=== PATIENT | female | born 1965 | race Caucasian/White ===

== ENCOUNTER 2024-10-17 08:01 | Outpatient (AMB) | payer MEDICAID, SELFPAY ==
[2024-10-17 08:15] VITALS: BP 158/84; PULSE 77; RESP 18; TEMP 36.6; O2SAT 97; BMI 42.5
--- NOTE | 2024-10-17 08:15 | ORTHONT_ITS ---
Vital signs 10/17/24 08:15 Height 1.65 m Height Method Stated Weight 115.921 kg Weight Measurement Method Standing Scale BMI 42.5 BP 158/84 H Blood Pressure Source Automatic Cuff Blood Pressure Location Left Upper Arm Position Sitting Respiration 18 Pulse 77 Pulse Source Monitor Temp 97.8 F Temp Source Oral Pulse Oximetry (%) 97 Oxygen Delivery Method Room Air Med/Allergies Allergies & Medications Allergies No Known Allergies Allergy (Verified 07/18/24 10:47) Subjective Visit Visit for: follow up visit, knee and injections Immunization / Flu Flu Vaccine in the Last 12 Months: Yes Date of most recent flu vaccination: 04/07/24 Flu Vaccine Exclusion Criteria: Already Received History of Present Illness Chief complaint: 3 MONTH FOLLOW UP/KNEE INJECTION Arelis is a pleasant 58-year-old female with bilateral knee pain and osteoarthritis. We previously gave her an injection of the left knee in the last 3 months. She has tried anti-inflammatories as well. The inections have worked quite well and are still working. Personal History Red flag PMH: smoker (NON SMOKER ) Pain Pain level (0-10): 4 Pain duration: ON AND OFF Pain location: inside (medial), outside (lateral), anterior and posterior Pain quality: aching Pain timing: night and increases with activity Associated signs & symptoms: stiffness and none Ambulatory data Ambulatory device: none Treatments Number of previous injections: 1 Improvement with previous injections: Yes Improvement with PT: No Improvement with NSAIDS: no Review of Systems Review of Systems: All systems negative unless otherwise noted in HPI. Exam Exam Patient is in no acute distress and is cooperative with the examination today. Breathing is nonlabored. In no respiratory distress. Bilateral extremities were evaluated and demonstrates sensation intact to light touch. Palpable pedal pulses are present. No significant edema is present. Bilateral hips were examined. The patient has no pain with log roll of the hips. Internal rotation to 30 degrees and external rotation to 30 degrees is painless. Negative FADIR. The left knee was examined. The left knee is in [varus] alignment. Range of motion from [0-115] degrees. Knee is stable to varus and valgus as well as AP translation with <5mm. Patient has a [negative] McMurrays. There is [no] pain with patellofemoral compression and [no] crepitus noted. The knee is [tender] to palpation [medially]. The right knee was also examined. The right knee is in [varus] alignment. Range of motion from [0-120] degrees. Knee is stable to varus and valgus as well as AP translation with <5mm. Patient has a [negative] McMurrays. There is [no] pain with patellofemoral compression and [no] crepitus noted. The knee is [tender] to palpation [medially]. X-rays of her bilateral knees demonstrate moderate to severe joint space narrow ing bilaterally with complete obliteration of the joint space Assessment and Plan Problem List (1) Bilateral primary osteoarthritis of knee: Status: Acute Plan: 58-year-old female with bilateral knee pain and osteoarthritis. She is morbidly obese. She would like bilateral knee cortisone injections today She will call us when she needs another injection. She is doing quite well right now. (2) Bilateral knee pain: Status: Acute Office Procedures GNS Level of Care Nursing/Assessment Patient Status: Established Patient Nursing Assessment/Reassesment: BP Monitoring, Medication Reconciliation, Update PMH in EMR and Vital Signs Coordination of Care: Complex Care and Chronic Disease 1-5, Consent,records obtained, informed consent, Lab and Imaging orders and Results/Orders obtained Established Patient Charge Established Patient Point Assignment: 95 Established Patient Point Charge: EP Level 3 (80-115) Past Medical History Past Medical History Have you ever been diagnosed with any of the following: Respiratory Problems Smoking: No Smoking Exposure: No
== END 2024-10-17 08:30 | disposition home or self-care (01) ==
LOC: HODSRG 08:01
PROVIDERS: PCP Physician Assistant; Referring Provider Physician Assistant; Supervising Provider Orthopaedic Surgery Adult Reconstructive Orthopaedic Surgery; Visit Provider Orthopaedic Surgery Adult Reconstructive Orthopaedic Surgery
DX: M17.0 Bilateral primary osteoarthritis of knee (principal); M25.562 Pain in left knee; M25.561 Pain in right knee; E66.01 Morbid (severe) obesity due to excess calories; Z68.41 Body mass index [BMI] 40.0-44.9, adult
CPT/HCPCS: 99213; G0463

== ENCOUNTER 2025-01-15 13:08 | Outpatient (AMB) | payer MEDICAID, SELFPAY ==
--- NOTE | 2025-01-15 13:25 | PD.ORTHCLVIS ---
Med/Allergies Allergies & Medications Allergies No Known Allergies Allergy (Verified 07/18/24 10:47) Exam Exam Patient is in no acute distress and is cooperative with the examination today. Breathing is nonlabored. In no respiratory distress. Bilateral extremities were evaluated and demonstrates sensation intact to light touch. Palpable pedal pulses are present. No significant edema is present. Bilateral hips were examined. The patient has no pain with log roll of the hips. Internal rotation to 30 degrees and external rotation to 30 degrees is painless. Negative FADIR. The left knee was examined. The left knee is in [varus] alignment. Range of motion from [0-115] degrees. Knee is stable to varus and valgus as well as AP translation with <5mm. Patient has a [negative] McMurrays. There is [no] pain with patellofemoral compression and [no] crepitus noted. The knee is [tender] to palpation [medially]. The right knee was also examined. The right knee is in [varus] alignment. Range of motion from [0-120] degrees. Knee is stable to varus and valgus as well as AP translation with <5mm. Patient has a [negative] McMurrays. There is [no] pain with patellofemoral compression and [no] crepitus noted. The knee is [tender] to palpation [medially]. X-rays of her bilateral knees demonstrate moderate to severe joint space narrowing bilaterally with complete obliteration of the joint space Assessment and Plan Problem List (1) Bilateral primary osteoarthritis of knee: Status: Acute Plan: 58-year-old female with bilateral knee pain and osteoarthritis. She is morbidly obese. She would like bilateral knee cortisone injections today Recommend knee cortisone injections as patient would like to proceed with conservative treatment at this time. The risks and benefits of the procedure were reviewed with the patient and patient gave verbal consent to continue with the procedure. Procedure: performed by Dr. Hunt Using sterile technique the Bilateral knees were thoroughly prepped with alcohol, and approximately 1 cc of Kenalog 40 mg/mL and 4 cc of 1% lidocaine was injected into each knee without resistance into the medial tibial femoral joint space. The patient tolerated the procedure. (2) Bilateral knee pain: Status: Acute Questionairres Past Medical History Past Medical History Have you ever been diagnosed with any of the following: Respiratory Problems Smoking: No Smoking Exposure: No Subjective Immunization / Flu Flu Vaccine in the Last 12 Months: Yes Flu Vaccine Exclusion Criteria: Already Received History of Present Illness Chief complaint: Bilateral knee pain Patient is a pleasant 52 severe female with bilateral knee pain. She is done well with the last cortisone injections. She would like any cortisone injection around today. She is received approximately 3 months of relief Review of Systems Review of Systems: All systems negative unless otherwise noted in HPI.
[2025-01-15 13:27] VITALS: BP 126/76; PULSE 80; RESP 18; TEMP 36.3; O2SAT 97; BMI 40.3
--- NOTE | 2025-01-15 14:30 | ORTHONT_ITS ---
Vital signs 01/15/25 13:27 01/15/25 14:31 Height 1.65 m Height Method Stated Weight 109.854 kg Weight Measurement Method Standing Scale BMI 40.3 BP 126/76 126/76 Blood Pressure Source Automatic Cuff Blood Pressure Location Right Upper Arm Position Sitting Respiration 18 18 Pulse 80 80 Pulse Source Monitor Temp 97.3 F 97.3 F Temp Source Temporal Artery Scan Pulse Oximetry (%) 97 97 Oxygen Delivery Method Room Air Med/Allergies Allergies & Medications Allergies No Known Allergies Allergy (Verified 07/18/24 10:47) Assessment and Plan Problem List (1) Bilateral primary osteoarthritis of knee: Status: Acute (2) Bilateral knee pain: Status: Acute Office Procedures GNS Level of Care Nursing/Assessment Patient Status: Established Patient Nursing Assessment/Reassesment: Medication Reconciliation, Update PMH in EMR and Vital Signs Coordination of Care: Complex Care and Chronic Disease 1-5, Education Complex Pt/Fam, Consent,records obtained, informed consent, Results/Orders obtained and Staff clarify orders Established Patient Charge Established Patient Point Assignment: 95 Established Patient Point Charge: EP Level 3 (80-115) Surgical Proc/IM SQ injection Major Surgical Procedure: Yes Medication Given Medication Given Medication Given: Yes Documented Dose Given: 8 Route: Infiitration Medication Given Medication Given Medication Given: Yes Documented Dose Given: 2 Route: Infiitration Office Meds Xylocaine 10 mg/mL (1 %) injection solution Performing Provider: James Hnut MD Performing Location: [facility] Administered by: James Hunt MD on 01/15/25 16:09 Dose Route Admin Location Dispensed Lot Number Expiration Date [facility] Principal [employer] 40 mL Infiltration 40 mL [id number] [facility] KA triamcinolone acetonide 40 mg/mL suspension for injection Performing Provider: James Hunt MD Performing Location: [facility] Administered by: James Hunt MD on 01/15/25 16:09 Dose Route Admin Location Dispensed Lot Number Expiration Date [facility] Principal [employer] 80 mg intra-articular 2 mL [id number] [employer] Questionairres Past Medical History Past Medical History Have you ever been diagnosed with any of the following: Respiratory Problems Smoking: No Smoking Exposure: No Subjective Immunization / Flu Flu Vaccine in the Last 12 Months: Yes Flu Vaccine Exclusion Criteria: Already Received Review of Systems Review of Systems: All systems negative unless otherwise noted in HPI.
[2025-01-15 14:31] VITALS: BP 126/76; PULSE 80; RESP 18; TEMP 36.3; O2SAT 97
== END 2025-01-15 13:37 | disposition home or self-care (01) ==
LOC: HODSRG 13:08
PROVIDERS: PCP Physician Assistant; Referring Provider Physician Assistant; Supervising Provider Orthopaedic Surgery Adult Reconstructive Orthopaedic Surgery; Visit Provider Orthopaedic Surgery Adult Reconstructive Orthopaedic Surgery
DX: M17.0 Bilateral primary osteoarthritis of knee (principal); E66.01 Morbid (severe) obesity due to excess calories; Z68.41 Body mass index [BMI] 40.0-44.9, adult
CPT/HCPCS: 20610; 99213; J3301; J3490; G0463

== ENCOUNTER 2025-04-16 13:22 | Outpatient (AMB) | payer MEDICAID, SELFPAY ==
--- NOTE | 2025-04-16 13:29 | ORTHONT_ITS ---
Vital signs 04/16/25 13:32 Height 1.65 m Height Method Stated Weight 105.715 kg Weight Measurement Method Standing Scale BMI 38.8 BP 125/81 Blood Pressure Source Automatic Cuff Blood Pressure Location Right Upper Arm Position Sitting Respiration 18 Pulse 74 Pulse Source Monitor Temp 97.8 F Temp Source Temporal Artery Scan Pulse Oximetry (%) 95 Oxygen Delivery Method Room Air Med/Allergies Allergies & Medications Allergies No Known Allergies Allergy (Verified 04/16/25 13:32) Medication Reconciliation ibuprofen 600 mg tablet 600 mg PO Q6H #30 tabs 11/01/19 [Rx Confirmed 04/16/25] cyclobenzaprine 10 mg tablet 10 mg PO TID PRN muscle spasm #30 tabs 05/09/21 [Rx Confirmed 04/16/25] hydrocodone 5 mg-acetaminophen 325 mg tablet 1 tab PO BID PRN pain #6 tabs 05/09/21 [Rx Confirmed 04/16/25] ibuprofen 800 mg tablet 800 mg PO TID PRN pain #30 tabs 05/09/21 [Rx Confirmed 04/16/25] Exam Exam Patient is in no acute distress and is cooperative with the examination today. Breathing is nonlabored. In no respiratory distress. Bilateral extremities were evaluated and demonstrates sensation intact to light touch. Palpable pedal pulses are present. No significant edema is present. Bilateral hips were examined. The patient has no pain with log roll of the hips. Internal rotation to 30 degrees and external rotation to 30 degrees is painless. Negative FADIR. The left knee was examined. The left knee is in [varus] alignment. Range of motion from [0-115] degrees. Knee is stable to varus and valgus as well as AP translation with <5mm. Patient has a [negative] McMurrays. There is [no] pain with patellofemoral compression and [no] crepitus noted. The knee is [tender] to palpation [medially]. The right knee was also examined. The right knee is in [varus] alignment. Range of motion from [0-120] degrees. Knee is stable to varus and valgus as well as AP translation with <5mm. Patient has a [negative] McMurrays. There is [no] pain with patellofemoral compression and [no] crepitus noted. The knee is [tender] to palpation [medially]. X-rays of her bilateral knees demonstrate moderate to severe joint space narrowing bilaterally with complete obliteration of the joint space Assessment and Plan Problem List (1) Bilateral primary osteoarthritis of knee: Status: Acute Plan: 58-year-old female with bilateral knee pain and osteoarthritis. She is morbidly obese. She would like bilateral knee cortisone injections today Recommend knee cortisone injections as patient would like to proceed with conservative treatment at this time. The risks and benefits of the procedure were reviewed with the patient and patient gave verbal consent to continue with the procedure. Procedure: performed by Dr. Hunt Using sterile technique the Bilateral knees were thoroughly prepped with alcohol, and approximately 1 cc of Kenalog 40 mg/mL and 4 cc of 1% lidocaine was injected into each knee without resistance into the medial tibial femoral joint space. The patient tolerated the procedure. (2) Bilateral knee pain: Status: Acute Office Procedures GNS Level of Care Nursing/Assessment Patient Status: Established Patient Nursing Assessment/Reassesment: Medication Reconciliation, Update PMH in EMR and Vital Signs Coordination of Care: Complex Care and Chronic Disease 1-5, Education Complex Pt/Fam, Consent,records obtained, informed consent, Results/Orders obtained and Staff clarify orders Established Patient Charge Established Patient Point Assignment: 95 Established Patient Point Charge: EP Level 3 (80-115) Surgical Proc/IM SQ injection Major Surgical Procedure: Yes (KNEE INJECTION ) Medication Given Medication Given Medication Given: Yes Documented Dose Given: 8 Route: Infiitration Medication Given Medication Given Medication Given: Yes Documented Dose Given: 2 Route: Infiitration Office Meds Xylocaine 10 mg/mL (1 %) injection solution Performing Provider: James Hunt MD Performing Location: [facility] Administered by: James Hunt MD on 04/16/25 13:39 Dose Route Admin Location Dispensed Lot Number Expiration Date [facility] [employer] Supervisor 40 mL Infiltration 40 mL [id number] 03/04/28 66356-368-[address] [facility] triamcinolone acetonide 40 mg/mL suspension for injection Performing Provider: James Hunt MD Performing Location: [facility] Administered by: James Hunt MD on 04/16/25 13:39 Dose Route Admin Location Dispensed Lot Number Expiration Date [facility] [employer] Supervisor 80 mg intra-articular 2 mL [id number] 06/03/26 13460-927-88 DANN LIRA MA Intake Visit Data Collection New Patient or Established: Established Patient (seen at [facility] within 3 years) Reason for Visit:: F/U 3 MONTHS KNEE INJECTIONS Seen by Clinical Staff ONLY (RN/MIKKI): No Verbal consent obtained for Telemed visit?: No Tension Worker Required: No PCP or OBGYN visit in last 3 months: Yes Hx Now: No Do You Feel Safe at Home: Yes Authorities Contacted: N/A Questionairres Past Medical History Past Medical History Have you ever been diagnosed with any of the following: Respiratory Problems Smoking: No Smoking Exposure: No Subjective Visit Visit for: follow up visit, knee and injections Immunization / Flu Flu Vaccine in the Last 12 Months: Yes Flu Vaccine Exclusion Criteria: Already Received History of Present Illness Chief complaint: Bilateral knee pain Patient is a pleasant female with bilateral knee pain. She has done well with the last cortisone injections. She would like any cortisone injection around today. She has received approximately 3 months of relief Personal History Red flag PMH: BMI BMI Counceling provided: Yes Pain Pain level (0-10): 6 Pain duration: ALL DAY Pain location: anterior and posterior Pain quality: sharp, dull and aching Associated signs & symptoms: none Ambulatory data Ambulatory device: none Treatments Improvement with previous injections: No Improvement with PT: No Improvement with NSAIDS: no Review of Systems Review of Systems: All systems negative unless otherwise noted in HPI.
[2025-04-16 13:32] VITALS: BP 125/81; PULSE 74; RESP 18; TEMP 36.6; O2SAT 95; BMI 38.8
== END 2025-04-16 13:41 | disposition home or self-care (01) ==
LOC: HODSRG 13:22
PROVIDERS: PCP Physician Assistant; Referring Provider Physician Assistant; Supervising Provider Orthopaedic Surgery Adult Reconstructive Orthopaedic Surgery; Visit Provider Orthopaedic Surgery Adult Reconstructive Orthopaedic Surgery
DX: M17.0 Bilateral primary osteoarthritis of knee (principal); M25.561 Pain in right knee; M25.562 Pain in left knee; E66.01 Morbid (severe) obesity due to excess calories; Z68.38 Body mass index [BMI] 38.0-38.9, adult
CPT/HCPCS: 20610; 99213; J3301; J3490; G0463

== ENCOUNTER 2025-10-20 09:32 | Outpatient (AMB) | payer MEDICAID, SELFPAY ==
--- NOTE | 2025-10-20 09:38 | ORTHONT_ITS ---
Vital signs 10/20/25 09:40 Height 1.65 m Height Method Stated Weight 106.396 kg Weight Measurement Method Standing Scale BMI 39.0 BP 137/84 H Blood Pressure Source Automatic Cuff Blood Pressure Location Left Upper Arm Position Sitting Respiration 19 Pulse 73 Pulse Source Monitor Temp 96.9 F Temp Source Temporal Artery Scan Pulse Oximetry (%) 97 Oxygen Delivery Method Room Air Med/Allergies Allergies & Medications Allergies No Known Allergies Allergy (Verified 10/20/25 09:43) Medication Reconciliation ibuprofen 600 mg tablet 600 mg PO Q6H #30 tabs 11/01/19 [Rx Confirmed 10/20/25] cyclobenzaprine 10 mg tablet 10 mg PO TID PRN muscle spasm #30 tabs 05/09/21 [Rx Confirmed 10/20/25] hydrocodone 5 mg-acetaminophen 325 mg tablet 1 tab PO BID PRN pain #6 tabs 05/09/21 [Rx Confirmed 10/20/25] ibuprofen 800 mg tablet 800 mg PO TID PRN pain #30 tabs 05/09/21 [Rx Confirmed 10/20/25] Exam Exam Patient is in no acute distress and is cooperative with the examination today. Breathing is nonlabored. In no respiratory distress. Bilateral extremities were evaluated and demonstrates sensation intact to light touch. Palpable pedal pulses are present. No significant edema is present. Bilateral hips were examined. The patient has no pain with log roll of the hips. Internal rotation to 30 degrees and external rotation to 30 degrees is painless. Negative FADIR. The left knee was examined. The left knee is in [varus] alignment. Range of motion from [0-115] degrees. Knee is stable to varus and valgus as well as AP translation with <5mm. Patient has a [negative] McMurrays. There is [no] pain with patellofemoral compression and [no] crepitus noted. The knee is [tender] to palpation [medially]. The right knee was also examined. The right knee is in [varus] alignment. Range of motion from [0-120] degrees. Knee is stable to varus and valgus as well as AP translation with <5mm. Patient has a [negative] McMurrays. There is [no] pain with patellofemoral compression and [no] crepitus noted. The knee is [tender] to palpation [medially]. X-rays of her bilateral knees demonstrate moderate to severe joint space narrowing bilaterally with complete obliteration of the joint space Assessment and Plan Problem List (1) Bilateral primary osteoarthritis of knee: Status: Acute Plan: 58-year-old female with bilateral knee pain and osteoarthritis. She is morbidly obese. She would like bilateral knee cortisone injections today Recommend knee cortisone injection as patient would like to proceed with conservative treatment at this time. The risks and benefits of the procedure were reviewed with the patient and patient gave verbal consent to continue with the procedure. Procedure: performed by Dr. Hunt Using sterile technique the left knee was thoroughly prepped with alcohol, and approximately 1 cc of Depo-Medrol 80mg/mL and 4 cc of 0.2% ropivacaine was injected without resistance into the medial tibial femoral joint space. The patient tolerated the procedure. Recommend knee cortisone injection as patient would like to proceed with conservative treatment at this time. The risks and benefits of the procedure were reviewed with the patient and patient gave verbal consent to continue with the procedure. Procedure: performed by Dr. Hunt Using sterile technique the Right knee was thoroughly prepped with alcohol, and approximately 1 cc of Depo-Medrol 80mg/mL and 4 cc of 0.2% ropivacaine was injected without resistance into the medial tibial femoral joint space. The patient tolerated the procedure. (2) Bilateral knee pain: Status: Acute Office Procedures GNS Level of Care Nursing/Assessment Patient Status: Established Patient Nursing Assessment/Reassesment: Medication Reconciliation, Update PMH in EMR and Vital Signs Coordination of Care: Complex Care and Chronic Disease 1-5, Education Complex Pt/Fam, Consent,records obtained, informed consent, Results/Orders obtained and Staff clarify orders Established Patient Charge Established Patient Point Assignment: 95 Established Patient Point Charge: EP Level 3 (80-115) Surgical Proc/IM SQ injection Minor Surgical Procedure: Yes (BILATERAL KNEE INJECTION) Medication Given Medication Given Medication Given: Yes Documented Dose Given: 1 Route: Infiitration Medication Given Medication Given Medication Given: Yes Documented Dose Given: 1 Route: Infiitration Medication Given Medication Given Medication Given: Yes Documented Dose Given: 4 Route: Infiitration Medication Given Medication Given Medication Given: Yes Documented Dose Given: 4 Route: Infiitration Office Meds methylprednisolone acetate 80 mg/mL suspension for injection Performing Provider: James Hunt MD Performing Location: [facility] Administered by: James Hunt MD on 10/20/25 09:46 Dose Route Admin Location Dispensed Lot Number Expiration Date Pack age [facility] Computerized [employer] Rec[employer] 160 mg intra-articular KNEE 2 mL [id number] 07/04/27 [address]-5 [id number] [employer] methylprednisolone acetate 80 mg/mL suspension for injection Performing Provider: James Hunt MD Performing Location: [facility] Administered by: James Hunt MD on 10/20/25 09:46 Dose Route Admin Location Dispensed Lot Number Expiration Date Pack age [facility] Computerized [employer] 160 mg intra-articular KNEE 2 mL [id number] 07/04/27 [address]-2 [id number] [employer] ropivacaine (PF) 2 mg/mL (0.2 %) injection solution Performing Provider: James Hunt MD Performing Location: [facility] Administered by: James Hunt MD on 10/20/25 09:46 Dose Route Admin Location Dispensed Lot Number Expiration Date Pack age [facility] Computer[employer] Recorder 40 mL Infiltration KNEE 40 mL [id number] 12/04/27 00871-646-11 [id number] [id number] [employer] ropivacaine (PF) 2 mg/mL (0.2 %) injection solution Performing Provider: James Hunt MD Performing Location: [facility] Administered by: James Hunt MD on 10/20/25 09:46 Dose Route Admin Location Dispensed Lot Number Expiration Date Pack age [facility] Computerized [employer]order 40 mL Infiltration KNEE 40 mL [id number] 12/04/27 36017-588-27 [id number] [facility] Intake Visit Data Collection New Patient or Established: Established Patient (seen at [facility] within 3 years) Reason for Visit:: 3MTH BL KNEE INJECTION Seen by Clinical Staff ONLY (RN/MA): No Cattle Sticker Required: No PCP or OBGYN visit in last 3 months: Yes Hx Now: No Do You Feel Safe at Home: Yes Authorities Contacted: N/A Questionairres Past Medical History Past Medical History Have you ever been diagnosed with any of the following: Respiratory Problems Smoking: No Smoking Exposure: No Subjective Visit Visit for: follow up visit and knee Immunization / Flu Flu Vaccine in the Last 12 Months: Yes Flu Vaccine Exclusion Criteria: Already Received History of Present Illness Chief complaint: BILATERAL KNEE INJECTIONS Patient is a pleasant female with bilateral knee pain. She has done well with the last cortisone injections. She would like any cortisone injection around today. She has received approximately 3 months of relief Personal History Red flag PMH: none BMI Counceling provided: Yes Pain Pain level (0-10): 4 Pain duration: ON AND OFF Pain location: anterior Pain quality: sharp Associated signs & symptoms: none Ambulatory data Ambulatory device: none Treatments Number of previous injections: 6 Improvement with previous injections: Yes Number of Physical Therapy sessions: 0 Improvement with PT: No Improvement with NSAIDS: no Review of Systems Review of Systems: All systems negative unless otherwise noted in HPI.
[2025-10-20 09:40] VITALS: BP 137/84; PULSE 73; RESP 19; TEMP 36.1; O2SAT 97; BMI 39.0
--- NOTE | 2025-10-20 09:46 | XR_ITS ---
EXAMINATION: Bilateral knees 2 views Right lateral knee left lateral knee 2 views Right axial knee left XR knee 2 views TECHNIQUE: Bilateral AP knees standing single view, bilateral PA knees standing single view flexion Standing right lateral knee left lateral knee 2 views Right axial knee left axial knee 2 views total 6 views Date and time: October 20, 2025, 0956 hours INDICATIONS: Bilateral knee pain beginning 2 years ago. FINDINGS: Significant osteopenia Bilateral severe narrowing medial joint spaces, [id number] Advanced narrowing lateral joint space right knee Advanced narrowing osteoarthritis patellofemoral joints No fractures No patellar dislocations IMPRESSION: Bilateral severe narrowing medial joint spaces, [id number] Advanced narrowing lateral joint space right knee Advanced narrowing/osteoarthritis bilateral patellofemoral joints
== END 2025-10-20 09:50 | disposition home or self-care (01) ==
LOC: HODSRG 09:32
PROVIDERS: PCP Physician Assistant; Referring Provider Physician Assistant; Supervising Provider Orthopaedic Surgery Adult Reconstructive Orthopaedic Surgery; Visit Provider Orthopaedic Surgery Adult Reconstructive Orthopaedic Surgery
DX: M17.0 Bilateral primary osteoarthritis of knee (principal); E66.01 Morbid (severe) obesity due to excess calories
CPT/HCPCS: 20610; 73564; 99213; J1010; J2795; G0463